=== PATIENT | female | born 1985 | race Two or more races ===

== ENCOUNTER 2021-09-06 14:36 | Outpatient (CLI) | payer BC | END 2021-09-06 14:37 | disposition home or self-care (01) | LOC: CSHULT 14:36 | PROVIDERS: ATTEND Nurse Practitioner Family | DX: R59.1 Generalized enlarged lymph nodes (principal); E04.2 Nontoxic multinodular goiter | CPT/HCPCS: 76536 ==

== ENCOUNTER 2023-09-06 08:40 | Outpatient (CLI) | payer BC ==
[2023-09-06] MEDS ORDERED: Magnevist 469MG/ML 20 ML VIAL ONE (09:09)
== END 2023-09-06 08:41 | disposition home or self-care (01) ==
LOC: CSHMRI 08:40
PROVIDERS: ATTEND Internal Medicine Gastroenterology
DX: K90.41 Non-celiac gluten sensitivity (principal); K21.9 Gastro-esophageal reflux disease without esophagitis; R16.0 Hepatomegaly, not elsewhere classified; D18.03 Hemangioma of intra-abdominal structures; R16.1 Splenomegaly, not elsewhere classified
CPT/HCPCS: 74183

== ENCOUNTER 2023-12-07 10:43 | Outpatient (CLI) | payer BC | END 2023-12-07 10:44 | disposition home or self-care (01) | LOC: CSHRAD 10:43 | PROVIDERS: ATTEND Internal Medicine Rheumatology | DX: M79.671 Pain in right foot (principal); M79.672 Pain in left foot ==